=== PATIENT | female | born 1985 | race Hispanic/Latino ===

== ENCOUNTER 2017-10-29 19:36 | Emergency (ER) | payer BC ==
--- NOTE | 2017-10-29 20:27 | RAD ---
TWO VIEW CHEST: 10/29/17 HISTORY: Chest pain. The lung powell are clear. Heart and mediastinum appear normal. Osseous structures are unremarkable. IMPRESSION: No acute abnormality. POS: [facility]
[2017-10-29 21:00] LABS: #Basophils 0.1 thou/uL (0.0-0.2); #Eosinphils 0.2 thou/uL (0.0-0.7); #Lymphocytes 3.1 thou/uL (1.20-3.40); #Monocytes 0.5 thou/uL (0.11-0.59); %Basophils 1.2 % (0.0-1.0); %Eosinophils 1.8 % (0.0-10.0); %Monocytes 5.7 % (0.0-10.0); %Neutrophils 56.3 % (42.0-75.0); Hemoglobin 14.6 g/dL (12.0-16.0); Mean Corpuscular HGB CONC 33.1 g/dL (32.0-36.0); Mean Corpuscular Hemoglobin 28.9 pg (27.0-31.0); Mean Corpuscular Volume 87.2 fl (81.0-99.0); Mean Platelet Volume 11.9 fL (7.4-10.4); Platelet Count 180 thou/uL (130-400); RBC Distribution Width 11.1 % (11.5-14.5); Red Blood Cell (RBC) Count 5.05 mill/uL (4.20-5.40); White Blood Cell (WBC) Count 8.9 thou/uL (4.8-10.8)
[2017-10-29 21:17] LABS: ALT (SGPT) 16 U/L (8-55); AST (SGOT) 15 U/L (5-34); Albumin 4.7 g/dL (3.5-5.0); Alkaline Phosphatase 83 U/L (40-150); Anion Gap 14 mmol/L (10-20); BUN (Urea Nitrogen) 14 mg/dL (7.0-18.7); Bilirubin, Total 0.3 mg/dL (0.2-1.2); Calc. Creatinine Clearance 0 mL/min (70-130); Calcium 9.1 mg/dL (7.8-10.44); Carbon Dioxide 22 mmol/L (22-29); Chloride 106 mmol/L (98-107); Estimated GFR-MDRD Greater than 90; Globulin 3.2 g/dL (2.4-3.5); Glucose 86 mg/dL (70-105); Lipase 44 U/L (8-78); Potassium 3.7 mmol/L (3.5-5.1); Protein, Total 7.9 g/dL (6.0-8.3); Sodium 138 mmol/L (136-145)
[2017-10-29 21:18] LABS: CKMB 0.8 ng/mL (0-6.6); Troponin I Less than 0.010 ng/mL (< 0.028)
[2017-10-29 21:58] LABS: Pregnancy Test - Urine (BHCG) Negative (Negative); Pregu Control Background? CLEAR/WHITE (CLR/WHITE); Pregu Control Bar Appear? YES (CONTROL BAR); Specific Gravity 1.015 (1.002-1.036)
== END 2017-10-29 23:37 | disposition home or self-care (01) ==
LOC: SCSER 19:36
DX: R07.89 Other chest pain (principal); G43.909 Migraine, unspecified, not intractable, without status migrainosus
CPT/HCPCS: 71046; 80053; 81025; 82553; 83690; 84484; 85025

== ENCOUNTER 2017-12-21 14:15 | Outpatient (CLI) | payer BC ==
--- NOTE | 2017-12-21 14:59 | RAD ---
4 VIEWS RIGHT KNEE: Date: 12/21/17 HISTORY: Pain for a few months. COMPARISON: None. FINDINGS: No joint effusion. Joint spaces are preserved. No fracture. No malalignment. IMPRESSION: Unremarkable 4 views right knee. POS: [facility]
[2017-12-21 15:09] LABS: Bilirubin Negative (Negative); Blood, Urine Negative (Negative); Clarity Cloudy (Clear); Glucose, Urine (Dipstick) Negative (Negative); Leukocyte Small (Negative); Nitrite Negative (Negative); Protein, Urine (Dipstick) Trace mg/dL (Neg-Trace); Urobilinogen 0.2 mg/dL (0.2-1.0); pH, Urine 6.5 (5.0-9.0)
[2017-12-21 15:20] LABS: Bacteria/HPF 2+ HPF (None Seen); RBC/HPF 0-3 HPF (0-3)
[2017-12-21 15:24] LABS: ALT (SGPT) 16 U/L (8-55); AST (SGOT) 16 U/L (5-34); Albumin 4.7 g/dL (3.5-5.0); Alkaline Phosphatase 66 U/L (40-150); Anion Gap 13 mmol/L (10-20); BUN (Urea Nitrogen) 12 mg/dL (7.0-18.7); Bilirubin, Total 0.4 mg/dL (0.2-1.2); Calc. Creatinine Clearance 0 mL/min (70-130); Calcium 9.2 mg/dL (7.8-10.44); Carbon Dioxide 24 mmol/L (22-29); Chloride 105 mmol/L (98-107); Estimated GFR-MDRD Greater than 90; Glucose 89 mg/dL (70-105); Protein, Total 7.7 g/dL (6.0-8.3); Sodium 138 mmol/L (136-145)
[2017-12-21 15:39] LABS: #Basophils 0.1 thou/uL (0.0-0.2); #Eosinphils 0.1 thou/uL (0.0-0.7); #Lymphocytes 2.4 thou/uL (1.20-3.40); #Monocytes 0.4 thou/uL (0.11-0.59); #Neutrophils 4.9 thou/uL (1.40-6.50); %Basophils 1.1 % (0.0-1.0); %Eosinophils 0.7 % (0.0-10.0); %Lymphocytes 30.5 % (21.0-51.0); %Monocytes 5.3 % (0.0-10.0); %Neutrophils 62.3 % (42.0-75.0); Hemoglobin 14.6 g/dL (12.0-16.0); Mean Corpuscular HGB CONC 34.4 g/dL (32.0-36.0); Mean Corpuscular Hemoglobin 29.5 pg (27.0-31.0); Mean Corpuscular Volume 85.7 fl (81.0-99.0); Mean Platelet Volume 13.6 fL (7.4-10.4); PLT Morphology Comment Appears Adequate; Platelet Count 150 thou/uL (130-400); RBC Distribution Width 11.3 % (11.5-14.5); Red Blood Cell (RBC) Count 4.96 mill/uL (4.20-5.40); White Blood Cell (WBC) Count 7.9 thou/uL (4.8-10.8)
== END 2017-12-21 14:16 | disposition home or self-care (01) ==
LOC: SCSRAD 14:15
PROVIDERS: ATTEND Family Medicine
DX: M25.561 Pain in right knee (principal); R82.99 Other abnormal findings in urine; R53.83 Other fatigue
CPT/HCPCS: 36415; 80053; 81001; 84443; 85025; 85652

== ENCOUNTER 2018-01-25 12:42 | Outpatient (CLI) | payer BC ==
--- NOTE | 2018-01-25 14:38 | RAD ---
LUMBAR SPINE FOUR VIEWS INCLUDING FLEXION AND EXTENSION LATERAL VIEWS: History: 33-year-old female with low back with radiculopathy. Left knee pain. FINDINGS: No evidence of acute fracture. No significant malalignment. There is some levoscoliosis of the upper lumbar thoracic vertebral column. IMPRESSION: Mild spondylosis with minimal levoscoliosis. No evidence for abnormal translation between flexion and extension. POS: [facility]
== END 2018-01-25 12:43 | disposition home or self-care (01) ==
LOC: SCSRAD 12:42
PROVIDERS: ATTEND Family Medicine
DX: M47.26 Other spondylosis with radiculopathy, lumbar region (principal)
CPT/HCPCS: 72110

== ENCOUNTER 2018-03-18 13:44 | Outpatient (CLI) | payer BC | END 2018-03-18 13:45 | disposition home or self-care (01) | LOC: BICMRI 13:44 | PROVIDERS: ATTEND Orthopaedic Surgery Hand Surgery | DX: M50.122 Cervical disc disorder at C5-C6 level with radiculopathy (principal); G56.11 Other lesions of median nerve, right upper limb | CPT/HCPCS: 70551; 72141 ==

== ENCOUNTER 2018-10-28 11:46 | Emergency (ER) | payer BC | END 2018-10-28 13:00 | disposition home or self-care (01) | LOC: SCSER 11:46 | DX: G51.0 Bell's palsy (principal); G43.909 Migraine, unspecified, not intractable, without status migrainosus; F41.9 Anxiety disorder, unspecified | CPT/HCPCS: 99284 ==

== ENCOUNTER 2018-11-18 15:11 | Outpatient (CLI) | payer BC ==
--- NOTE | 2018-11-18 19:57 | MRI ---
MRI BRAIN WITH AND WITHOUT CONTRAST: INDICATIONS: Headache. There is a question of Pinzon's palsy on the right. TECHNIQUE: Multiplanar, multisequential imaging of the brain is obtained. Post contrast images obtained with IV MultiHance. FINDINGS: The ventricles have normal size and position. No evidence of restricted diffusion. There is no mass or edema. No white matter abnormalities. Thin sections through the internal auditory canals were obtained pre and post contrast. There is asymmetric enhancement of the right facial nerve, involving the labyrinthine portion, genicu late ganglion, and tympanic segment. Also, there is some mild asymmetric enhancement of the mastoid segment on the right when compared to the left. IMPRESSION: 1. There is abnormal enhancement of the right facial nerve, as described above. 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 2. MRI brain otherwise unremarkable. POS: [facility]
== END 2018-11-18 15:12 | disposition home or self-care (01) ==
LOC: SCSMRI 15:11
PROVIDERS: ATTEND Family Medicine
DX: G44.89 Other headache syndrome (principal); R20.0 Anesthesia of skin
CPT/HCPCS: 70553